=== PATIENT | female | born 1995 | race Caucasian/White ===

== ENCOUNTER 2019-04-15 06:18 | Inpatient (IN) ==
[2019-04-15] MEDS ORDERED: NALBUPHINE HCL 10 MG/ML AMPUL IV PRN ×2 (06:39)
[2019-04-15] MEDS ORDERED: LIDOCAINE HCL 50 ML VIAL PERI PRN (06:39)
[2019-04-15] MEDS ORDERED: ONDANSETRON 4 MG TAB.RAPDIS PO PRN (06:39)
[2019-04-15] MEDS ORDERED: RINGER'S SOLUTION,LACTATED 1,000 ML IV PRN (06:39)
[2019-04-15] MEDS ORDERED: OXYTOCIN/DEXTROSE 5%-WATER 30 UNITS/500 ML BAG IV ONE ×2 (06:39→12:18)
[2019-04-15] MEDS: RINGER'S SOLUTION,LACTATED 1,000 ML IV ONE ×2 (07:22→09:58)
[2019-04-15 07:36] LABS: Cocaine Ur Negative (NEGATIVE); Urine Barbiturate Negative (NEGATIVE); Urine Benzodiazepines Negative (NEGATIVE); Urine Opiates Negative (NEGATIVE); Urine PCP Negative (NEGATIVE); Urine THC Negative (NEGATIVE)
--- NOTE | 2019-04-15 08:50 | HP ---
Chief Complaint - Chief Complaint Date of Service: 04/15/19 Time of Service: 08:40 Chief Complaint: Patient presents for labor induction History of Present Illness: The patient is a 23 year old at 40w 0d who presents for a medical induction of labor at her due date. She denies vb or lof. Fetus is active. Ctx on pitocin. Medical History (Last Reviewed 04/15/19 @ 08:48 by Noelle Shah MD) Anemia affecting Onset Date: 04/23/17 Anxiety Onset Date: 2002 Asthma Onset Date: 2002 Depression Heart murmur Onset Date: Unknown Dx as an Varicose veins during , antepartum only has problems during Surgical History: Surgical History (Last Reviewed 04/15/19 @ 08:48 by Noelle Shah MD) No pertinent past surgical history Family History: Family History (Last Reviewed 04/15/19 @ 08:48 by Noelle Shah MD) Grandfather Heart disease Bladder cancer maternal Grandmother CVA (cerebral vascular accident) Maternal Mother Fibromyalgia Father Unknown family medical history Social History: (Last Reviewed 04/15/19 @ 08:48 by Noelle Shah MD) Social History: Marital status: Single household members: significant other, children current occupational status: unemployed current occupational exposures/hazards: No Highest education level completed: high school graduate Service: No Tobacco: Smoking Status: Former smoker Alcohol: alcohol intake: never Substance Use: substance use type: does not use Dietary Habits: caffeine: Yes caffeine comment: 1 daily Type: coffee Personal Safety: victim of physical abuse: No victim of emotional abuse: No Review Of Systems (GEN) - Review of Systems Generalized/Overall Review: Present: No Symptoms Reported Misc: All systems neg except as marked Allergies/Adverse Reactions: Allergies Allergy/AdvReac Type Severity Reaction Status Date / Time amoxicillin Allergy Intermediate Hives Verified 04/09/19 09:47 grass pollen AdvReac Verified 04/09/19 09:47 house dust AdvReac Verified 04/09/19 09:47 mold AdvReac Verified 04/09/19 09:47 Home Medications: HOME MEDICATIONS Ferrous Sulfate [Iron] 325 mg PO DAILY 10/27/17 [Last Taken 10/28/17] Vits96/Iron Fum/Folic [ S] 1 tab PO DAILY 10/27/17 [Last Taken 06/17/18] Exam - Exam Vital Signs: Vital Signs - Last Taken Temp 36.4 C 04/15/19 07:09 Pulse 82 04/15/19 07:09 Resp 18 04/15/19 07:09 BP 113/66 04/15/19 07:09 Pulse Ox 98 04/15/19 07:09 Constitutional: Present: Alert, Oriented x3, Cooperative ENT Exam: Present: hearing grossly normal Respiratory: Present: lungs clear, normal breath sounds Cardiovascular/Chest: Present: regular rate, rhythm Abdomen: Present: soft, nontender, nondistended /Rectal: Present: Other - /-2 AROM for clear fluid Extremity: Present: non-tender, no calf tenderness Skin Exam: Present: normal color, warm/dry, no cyanosis Appearance: Present: appropriate appearance Eye contact: Present: cooperative Thoughts: Present: normal thought pattern Diagnostic Studies: Laboratory Results Urine Opiates Screen Negative (NEGATIVE) 04/15/19 07:08 Barbiturate Screen Negative (NEGATIVE) 04/15/19 07:08 Ur Phencyclidine Scrn Negative (NEGATIVE) 04/15/19 07:08 Urine Amphetamine Negative (NEGATIVE) 04/15/19 07:08 U Benzodiazepines Scrn Negative (NEGATIVE) 04/15/19 07:08 Urine Cocaine Screen Negative (NEGATIVE) 04/15/19 07:08 Urine Marijuana (THC) Negative (NEGATIVE) 04/15/19 07:08 Blood Type A Positive 04/15/19 07:08 Antibody Screen Negative 04/15/19 07:08 Assessment/Plan - Narrative Narrative: 23 year old at 40w 0d IOL with pitocin and augmentation with AROM GBS negative: prophylaxis not indicated FHT cat 1
[2019-04-15] MEDS ORDERED: NALOXONE HCL 1 MG/1 ML SYRG IV PRN (09:40)
[2019-04-15] MEDS ORDERED: ONDANSETRON HCL/PF 2 MG/ML VIAL IV PRN (09:40)
[2019-04-15] MEDS ORDERED: BUPIVACAINE HCL/0.9 % NACL/PF 250 ML EP PRN (09:40)
[2019-04-15] MEDS ORDERED: BUPIVACAINE HCL/PF 30 ML VIAL EP SCH (09:45)
--- NOTE | 2019-04-15 09:48 | ANES ---
Anesthesia Pre Procedure Eval Vitals/Labs: Last Vital Signs Temp 36.4 C 04/15/19 07:09 Pulse 82 04/15/19 07:09 Resp 18 04/15/19 07:09 BP 113/66 04/15/19 07:09 Pulse Ox 98 04/15/19 07:09 HOME MEDICATIONS Ferrous Sulfate [Iron] 325 mg PO DAILY 10/27/17 [Last Taken 10/28/17] Vits96/Iron Fum/Folic [ S] 1 tab PO DAILY 10/27/17 [Last Taken 10/28/17] Allergies/Adverse Reactions: Allergies Allergy/AdvReac Type Severity Reaction Status Date / Time amoxicillin Allergy Intermediate Hives Verified 04/09/19 09:47 grass pollen AdvReac Verified 04/09/19 09:47 house dust AdvReac Verified 04/09/19 09:47 mold AdvReac Verified 04/09/19 09:47 - Planned Procedure Planned Procedure: Labor epidural Medication List Reviewed:: Yes Allergies Verified: Yes Medical History (Last Reviewed 04/15/19 @ 09:48 by Ethan Campos CRNA) Anemia affecting Onset Date: 04/23/17 Anxiety Onset Date: 2002 Asthma Onset Date: 2002 Depression Heart murmur Onset Date: Unknown Dx as an infant Varicose veins during , antepartum only has problems during Surgical History (Last Reviewed 04/15/19 @ 09:48 by Ethan Campos CRNA) No pertinent past surgical history Family History (Last Reviewed 04/15/19 @ 08:48 by Noelle Shah MD) Grandfather Heart disease Bladder cancer maternal Grandmother CVA (cerebral vascular accident) Maternal Mother Fibromyalgia Father Unknown family medical history - Cardiovascular Tolerate Activity: Good Heart Sounds: S1 & S2, Regular - Anesthesia Assessment and Plan ASA Class: PS, II Anesthesia Type Plan: Epidural
--- NOTE | 2019-04-15 10:13 | ANES ---
Anesthesia Procedure Note Procedure Note: ANESTHESIA PROCEDURE NOTE Date of Procedure: 04/15/2019. Time of procedure: 0950. Performed by: Ethan Campos CRNA Shoe Polisher: None. Preprocedure diagnosis: Active labor. Post procedure diagnosis: Same. Procedure: Insertion of labor epidural. Indications: The patient is a 23-year-old female in active labor requesting labor epidural for pain management. Findings: See below. Details of the procedure: The patient was placed in a sitting position. DuraPrep as well as Betadine swabs X3 was applied to the patient's back. Patient was then draped in a sterile fashion. Lidocaine 1% was infiltrated to the skin and subcutaneous tissues at the level of the L3-4 interspace. The epidural space was identified using a 18-gauge Tuohy needle with [id number] technique. Epidural catheter was inserted to a depth of 11 centimeters at skin. Negative test dose was elicited using 3 mL of 1.5% preservative-free lidocaine plus epinephrine 1 200,000. The epidural catheter was then taped and secured in place. A loading dose of 8 mL of 0.25% preservative-free bupivacaine was administered to the epidural catheter after negative aspiration for blood and CSF. EBL: Minimal. Fluids: N/A. Specimen: N/A. Post procedure condition: The patient tolerated the procedure well. No complications were noted. Thank you for this consultation. Ethan Campos CRNA
--- NOTE | 2019-04-15 10:14 | ANES ---
Post Anesthesia Assessment - Vital Signs Vitals: Last Vital Signs Temp 36.7 C 04/15/19 10:10 Pulse 105 H 04/15/19 10:10 Resp 20 04/15/19 10:10 BP 114/64 04/15/19 10:10 Pulse Ox 96 04/15/19 10:10 Airway Patency: Normal - Mental Status Level Of Consciousness: Awake - N/V Assessment Nausea/Vomiting Presence: None Dehydration:: No
[2019-04-15] MEDS ORDERED: HYDROcodone/ACETAMINOPHEN 1 EACH TABLET PO PRN ×2 (12:18)
[2019-04-15] MEDS ORDERED: GLYCERIN/WITCH HAZEL LEAF 40 APPL BOX TP PRN (12:18)
[2019-04-15] MEDS ORDERED: SENNOSIDES 8.6 MG TABLET PO PRN (12:18)
[2019-04-15] MEDS ORDERED: BENZOCAINE/MENTHOL 81 SPRAY CAN TP PRN (12:18)
[2019-04-15] MEDS ORDERED: diphenhydrAMINE HCL 25 MG CAPSULE PO PRN (12:18)
[2019-04-15] MEDS ORDERED: HYDROCORTISONE 30 APPL TUBE TP PRN (12:18)
[2019-04-15] MEDS ORDERED: IBUPROFEN 800 MG TABLET PO PRN (12:18)
[2019-04-15] MEDS ORDERED: BISACODYL 10 MG SUPP.RECT RC PRN (12:18)
--- NOTE | 2019-04-15 12:23 | OR ---
Operative Report - Dictated Report Narrative: Date of delivery: 04/15/2019 Time of delivery: 1208 Gender: female weight: 3829 grams APGARS: 9 Procedure: Description of the procedure: The patient is a 23 year old at 40w 0d who was induced due to being at her due date. She was induced with pitocin and augmented with AROM. She progressed to complete dilation. She delivered a viable female infant in direct OA presentation. Cord clamping was delayed for 60 seconds. The cord was clamped and cut. Cord blood was collected. The placenta was delivered by expression and appeared intact. EBL: 200 mL Lacerations: none Complications: none Specimens: none
[2019-04-15] MEDS ORDERED: MISOPROSTOL 200 MCG TABLET RC STA (15:33)
[2019-04-15] MEDS ORDERED: CLINDAMYCIN PHOSPHATE 900 MG in DEXTROSE 5 % IN WATER 100 ML IV ONE ×2 (16:18)
[2019-04-15] MEDS ORDERED: DEXTROSE 5% IV ONE ×2 (16:19)
[2019-04-15] MEDS ORDERED: WATER IV ONE ×2 (16:19)
[2019-04-15] MEDS ORDERED: GENTAMICIN SULFATE IV ONE ×2 (16:19)
--- NOTE | 2019-04-15 16:24 | PN ---
Progess Note - Interim Date: 04/15/19 Time: 16:21 Narrative: 04/15/19 16:21 Called to the patient's bedside for bleeding. Cytotec 1000 mcg given rectally A small amount of clots removed by manual uterine exploration. The clots were in lower uterine segment. Given manual uterine exploration will give antibiotics for endometritis prophylaxis. Given the patient's allergy to amoxicillin will administer clindamycin and gentamicin. Baseline creatinine due to gentamicin administration
[2019-04-15] MEDS: DOCUSATE SODIUM 100 MG CAPSULE PO SCH (20:32)
[2019-04-16] MEDS: DOCUSATE SODIUM 100 MG CAPSULE PO SCH ×2 (08:49→22:19)
--- NOTE | 2019-04-16 09:04 | PN ---
Subjective - Date and Time Seen Date: 04/16/19 Time: 09:02 Subjective Narrative: Patient without complaints Objective Objective Narrative: See vital signs - Review of Systems Generalized/Overall Review: Reports: No Symptoms Reported Misc: All systems neg except as marked - Vitals Vitals: Last Vital Signs Temp 36.8 C 04/16/19 06:45 Pulse 88 04/16/19 06:45 Resp 16 04/16/19 06:45 BP 129/59 04/16/19 06:45 Pulse Ox 98 04/16/19 06:45 - Exam Constitutional: Present: Alert, Oriented x3, Cooperative, No distress Abdomen: Present: soft, nontender, nondistended - fundus is firm Extremity: Present: non-tender, no calf tenderness Skin Exam: Present: normal color, warm/dry, no cyanosis Appearance: Present: appropriate appearance Eye contact: Present: cooperative Thoughts: Present: normal thought pattern Cauti Physician Documentation - Urinary Catheter Management Urethral (Nye) Urethral Indwelling: No Date of Insertion: 04/15/19 Time of Insertion: 10:36 Date of Removal: 04/15/19 Time of Removal: 12:06 Assessment/Plan Plan Narrative: PPD 1 s/p Doing well Discharge tomorrow
--- NOTE | 2019-04-17 08:44 | PN ---
Subjective - Date and Time Seen Date: 04/17/19 Time: 08:41 Subjective Narrative: Patient without complaints Objective Objective Narrative: See vital signs - Review of Systems Generalized/Overall Review: Reports: No Symptoms Reported Misc: All systems neg except as marked - Vitals Vitals: Last Vital Signs Temp 36.7 C 04/17/19 07:20 Pulse 77 04/17/19 07:20 Resp 16 04/17/19 07:20 BP 116/67 04/17/19 07:20 Pulse Ox 100 04/17/19 07:20 - Exam Constitutional: Present: Alert, Oriented x3, Cooperative, No distress Abdomen: Present: soft, nontender, nondistended - fundus is firm Extremity: Present: non-tender, no calf tenderness Skin Exam: Present: normal color, warm/dry, no cyanosis Appearance: Present: appropriate appearance Eye contact: Present: cooperative Thoughts: Present: normal thought pattern Cauti Physician Documentation - Urinary Catheter Management Urethral (Nye) Urethral Indwelling: No Date of Insertion: 04/15/19 Time of Insertion: 10:36 Date of Removal: 04/15/19 Time of Removal: 12:06 Assessment/Plan Plan Narrative: PPD 2 s/p Doing well Discharge home Follow-up in 4 weeks
[2019-04-17] MEDS: DOCUSATE SODIUM 100 MG CAPSULE PO SCH (10:00)
[2019-04-17 12:10] VITALS: BP 118/71
== END 2019-04-17 13:43 | disposition home or self-care (01) | DRG 806 ==
LOC: OB 06:18
PROVIDERS: ADMIT Obstetrics & Gynecology; ATTEND Obstetrics & Gynecology
CPT/HCPCS: 36415; 59025; 80307; 82565; 86850